=== PATIENT | female | born 1955 | race Caucasian/White ===

== ENCOUNTER → 2016-08-07 | Outpatient (CLI) | payer MEDICARE, OTHER ==
[~2016-08-07] MED LIST: ACIDOPHILIS; ACIDOPHILUS PRO1 CAP PO; ANORO IH; COREG 6.256.25 MG/TA PO; DAZIDOX10 MG PO; DITROPAN 5MG TAB5 MG PO; FLEXERIL 1010 MG/TAB PO; FLONASEALLERGY NS; LIORESAL 1010 MG/TAB PO; LIPITOR 80MG80 MG PO; NEURONTIN400 MG/CAP PO; NEURONTIN600 MG/TAB PO; NORCO 325 MG-51 TAB PO; PAXIL 30MG30 MG PO; PERCOCET 325 MG1 TA2 PO; PERCR 7.5 PO; PLAVIX 75MG TAB75 MG PO; PRILOSEC 20MG20 MG PO; PRINIVIL5 MG PO; PROAIR HFA0.09 MG/AC IH; SOMA 350MG350 MG/TAB PO; THEO-24 20200 MG/CAP PO; ULTRAM 50MG TAB50 MG PO; VITAMIN D32000 I1 PO; WELLBUTRIN 75MG75 MG PO; ZANAFLEX 4MG TAB4 MG PO; ZOFRAN8 MG PO; ZYRTEC 10MG10 MG PO
== END ==
LOC: MC.RAD 14:34
DX: Z12.31 Encounter for screening mammogram for malignant neoplasm of breast (principal)

== ENCOUNTER 2016-10-07 11:09 | Emergency (ER) | payer MEDICARE, OTHER ==
[~2016-10-07] VITALS: Ht 165.1 cm; Wt 53.2 kg
[~2016-10-07 11:09] MED LIST changes: -COREG 6.256.25 MG/TA PO; -LIPITOR 80MG80 MG PO; -NORCO 325 MG-51 TAB PO; -PLAVIX 75MG TAB75 MG PO; -PRINIVIL5 MG PO; -ULTRAM 50MG TAB50 MG PO; -ZOFRAN8 MG PO
[2016-10-07 11:12] VITALS: TEMP 98
[2016-10-07] MEDS ORDERED: LIPITOR 80MG80 MG PO (11:45)
[2016-10-07] MEDS ORDERED: COREG 6.256.25 MG/TA PO (11:45)
[2016-10-07] MEDS ORDERED: PRINIVIL5 MG PO (11:46)
[2016-10-07] MEDS ORDERED: PLAVIX 75MG TAB75 MG PO (11:46)
[2016-10-07] MEDS ORDERED: ULTRAM 50MG TAB50 MG PO (13:04)
[2016-10-07 13:20] VITALS: BP 152/72; PULSE 86
== END 2016-10-07 13:25 | disposition home or self-care (01) ==
LOC: COL.ER 11:09
DX: M25.521 Pain in right elbow (principal); I25.2 Old myocardial infarction; J44.9 Chronic obstructive pulmonary disease, unspecified; F17.210 Nicotine dependence, cigarettes, uncomplicated

== ENCOUNTER 2016-12-07 21:00 | Emergency (ER) | payer MEDICARE, OTHER ==
[~2016-12-07] VITALS: Ht 165.1 cm; Wt 54.5 kg
[~2016-12-07 21:00] MED LIST changes: +COREG 6.256.25 MG/TA PO; +LIPITOR 80MG80 MG PO; +PLAVIX 75MG TAB75 MG PO; +PRINIVIL5 MG PO; +ULTRAM 50MG TAB50 MG PO
[2016-12-07 21:02] VITALS: TEMP 97.8
[2016-12-07] MEDS ORDERED: ZOFRAN8 MG PO (22:00)
[2016-12-07] MEDS ORDERED: NORCO 325 MG-51 TAB PO (22:00)
[2016-12-08 00:47] VITALS: BP 191/94; PULSE 91
== END 2016-12-08 00:47 | disposition home or self-care (01) ==
LOC: COL.ER 21:00
DX: M54.6 Pain in thoracic spine (principal); M54.2 Cervicalgia; J44.9 Chronic obstructive pulmonary disease, unspecified; K21.9 Gastro-esophageal reflux disease without esophagitis; Z87.39 Personal history of other diseases of the musculoskeletal system and connective tissue; Z79.02 Long term (current) use of antithrombotics/antiplatelets; Z98.51 Tubal ligation status; Z98.890 Other specified postprocedural states
CPT/HCPCS: J1170; J1630; J1885; J2405; J2765; J7030

== ENCOUNTER 2017-11-26 15:51 | Observation (INO) | payer MEDICARE, OTHER ==
[~2017-11-26] VITALS: Ht 165.1 cm; Wt 45.5 kg
[~2017-11-26 15:51] MED LIST changes: +NORCO 325 MG-51 TAB PO; +ZOFRAN8 MG PO
[2017-11-26] MEDS ORDERED: CYMBALTA 20MG20 MG (16:11)
[2017-11-26 16:30] LABS: BASO % 0.3 % (0.0-2.0); EOS % 0.3 % (0-4.0); GRAN # 10.7 (1.4-6.5); GRAN % 80.8 % (42.2-75.2); HEMATOCRIT 43.3 % (37.0-47.0); HEMOGLOBIN 13.9 g/dl (12.5-16.0); LYMPH # 1.3 (1.2-3.4); LYMPH % 9.9 % (20.0-51.0); MEAN CELL VOLUME 94 fl (80.0-100.0); MEAN CORPUSCULAR HEMOGLOBIN 30 pg (27.0-31.0); MEAN CORPUSCULAR HGB CONC 32 g/dl (33.0-37.0); MEAN PLATELET VOLUME 9.4 fl (7.4-10.4); MONO # 1.1 (0.1-0.6); PLATELET COUNT 301 K/mm3 (130-400); RED BLOOD COUNT 4.61 M/mm3 (4.10-5.30); REDCELL DISTRIBUTION WIDTH-CV 13.2 % (11.5-14.5)
[2017-11-26 16:31] LABS: PROTHROMBIN TIME 11.4 SECONDS (9.7-12.8)
[2017-11-26 16:38] LABS: ALANINE AMINOTRANSFERASE 29 U/L (9-52); ALBUMIN 4.1 gm/dL (3.5-5.0); ALKALINE PHOSPHATASE 114 U/L (50-136); ANION GAP 10 mmol/L (7-16); AST,SGOT 35 U/L (15-37); BILIRUBIN,TOTAL 0.6 mg/dL (0.0-1.0); BLOOD UREA NITROGEN 15 mg/dL (7-17); CARBON DIOXIDE 31 mmol/L (22-30); CHLORIDE 93 mmol/L (98-107); CREATININE, serum 0.92 mg/dL (0.52-1.25); GLUCOSE 114 mg/dL (74-106); POTASSIUM 4.2 mmol/L (3.4-5.0); SODIUM 134 mmol/L (137-145); TOTAL PROTEIN 7.6 gm/dL (6.4-8.2)
[2017-11-26 16:44] LABS: ARTERIAL BLD GAS O2 SATURATION 92.9 % (92-100); ARTERIAL BLD GAS TCO2 CT 32.5; ARTERIAL BLOOD GAS BASE EXCESS 3.6 (-2-2); ARTERIAL BLOOD GAS HCO3 30.7 meq/L (22-26); ARTERIAL BLOOD GAS PCO2 57.5 mmHg (35-45); ARTERIAL BLOOD GAS pH 7.35 (7.35-7.45)
[2017-11-26 16:52] LABS: TROPONIN-I < 0.012 ng/mL (0.000-0.034)
[2017-11-26 20:00] VITALS: BP 116/76; PULSE 87; TEMP 98.8
[2017-11-26 20:12] VITALS: BP 110/63; PULSE 96; TEMP 98.6
[2017-11-27] VITALS (7 sets, daily range): BP systolic 117–152; BP diastolic 66–99; PULSE 70–93; TEMP 97.3–998.2
[2017-11-27 06:48] LABS: HEMATOCRIT 41.3 % (37.0-47.0); HEMOGLOBIN 13.2 g/dl (12.5-16.0); MEAN CELL VOLUME 95 fl (80.0-100.0); MEAN CORPUSCULAR HEMOGLOBIN 30 pg (27.0-31.0); MEAN CORPUSCULAR HGB CONC 32 g/dl (33.0-37.0); MEAN PLATELET VOLUME 9.4 fl (7.4-10.4); PLATELET COUNT 235 K/mm3 (130-400); RED BLOOD COUNT 4.37 M/mm3 (4.10-5.30)
[2017-11-27 06:57] LABS: CALCIUM 9.2 mg/dL (8.4-10.2); CREATININE, serum 0.57 mg/dL (0.52-1.25); POTASSIUM 4.5 mmol/L (3.4-5.0)
[2017-11-27 07:53] LABS: BAND 4 % (0-10); LYMPHOCYTE 5 % (20.0-51.0); NEUTROPHILS 91 % (42.0-75.2); PLATELET ESTIMATE NORMAL (NORMAL)
[2017-11-27 07:54] LABS: TOXIC GRANULATION PRESENT
[2017-11-28 03:59] VITALS: BP 159/90; PULSE 85; TEMP 98.3
[2017-11-28 07:51] VITALS: BP 158/88; PULSE 90; TEMP 97.8
[2017-11-28] MEDS ORDERED: DOXYCYCLINE 10100 MG PO (09:38)
[2017-11-28] MEDS ORDERED: PREDNISONE20 MG PO (09:41)
[2017-11-28 12:08] VITALS: BP 145/81; PULSE 76; TEMP 97.5
[2017-11-28] MEDS ORDERED: NICODERM C21 MG/PATC TD (15:02)
== END 2017-11-28 15:00 | disposition home or self-care (01) ==
LOC: COL.ER 15:51 → MEDICAL 18:38
PROVIDERS: Emergency Medicine; Nurse Practitioner
DX: J44.1 Chronic obstructive pulmonary disease with (acute) exacerbation (principal); F17.210 Nicotine dependence, cigarettes, uncomplicated; I25.2 Old myocardial infarction; I10 Essential (primary) hypertension; E78.5 Hyperlipidemia, unspecified; R79.89 Other specified abnormal findings of blood chemistry; M79.7 Fibromyalgia; E44.0 Moderate protein-calorie malnutrition; Z68.1 Body mass index [BMI] 19.9 or less, adult; Z80.0 Family history of malignant neoplasm of digestive organs; Z95.5 Presence of coronary angioplasty implant and graft; I25.10 Atherosclerotic heart disease of native coronary artery without angina pectoris
CPT/HCPCS: G0378; J1650; J1940; J1956; J2930; J7030; J7512

== ENCOUNTER 2018-11-07 13:10 | Emergency (ER) | payer MEDICARE, OTHER ==
[~2018-11-07] VITALS: Ht 162.6 cm; Wt 45.5 kg
[~2018-11-07 13:10] MED LIST changes: +CYMBALTA 20MG20 MG; +DOXYCYCLINE 10100 MG PO; +NICODERM C21 MG/PATC TD; +PREDNISONE20 MG PO
[2018-11-07 13:29] VITALS: BP 135/78; TEMP 98.9
[2018-11-07] MEDS ORDERED: CARAFATE S1 GM/10 ML PO (16:47)
[2018-11-07 16:55] VITALS: PULSE 76
== END 2018-11-07 16:55 | disposition home or self-care (01) ==
LOC: COL.ER 13:10
DX: R09.89 Other specified symptoms and signs involving the circulatory and respiratory systems (principal); J44.9 Chronic obstructive pulmonary disease, unspecified; Z79.02 Long term (current) use of antithrombotics/antiplatelets

== ENCOUNTER → 2018-12-05 | Outpatient (CLI) | payer MEDICARE, OTHER ==
[~2018-12-05] MED LIST changes: +CARAFATE S1 GM/10 ML PO
== END ==
LOC: MC.RAD 13:17
DX: Z12.31 Encounter for screening mammogram for malignant neoplasm of breast (principal)